=== PATIENT | male | born 1945 | race Caucasian/White ===

== ENCOUNTER → 2016-12-02 | Outpatient (CLI) | payer MEDICARE, OTHER ==
--- NOTE | 2016-12-02 11:50 | CT ---
EXAMINATION TYPE: CT chest wo con DATE OF EXAM: 12/02/2016 11:13 AM COMPARISON: 08/04/2016 HISTORY: f/u pneumonia, sob CT DLP: [address] of the chest was performed with lung and mediastinal window settings submitted. The la ck of contrast limits evaluation of the vascular, mediastinal and parenchymal structures including th e upper abdomen. LUNGS: Stable spiculated nodule within the right middle lobe measuring approximately 1.1 cm versus 1. 1 cm previously. No new nodules are identified. Small right paraspinal nodule is also unchanged and m easures 7.8 mm versus 8 mm previously. The lungs are otherwise clear. No evidence for focal consolida tion. No evidence for volume loss. MEDIASTINUM/JEANNE: Thoracic aorta is of normal caliber with limite d evaluation given lack of contrast. The heart is not enlarged. No evidence for mediastinal mass. No lymph nodes greater than 1cm. UPPER ABDOMEN: Stable small hiatal hernia and hepatic cyst. Left renal calculus measures 8 mm in grea test dimension. OTHER: No significant other abnormality. IMPRESSION: 1. Stable stellate density right middle lobe. Continued follow-up to assess for stability. 2. Small hiatal hernia with esophageal thickening. Consider direct visualization if felt clinically i ndicated.
== END | disposition home or self-care (01) ==
LOC: RADCTMAIN 10:53
PROVIDERS: ATTEND Internal Medicine
DX: J98.4 Other disorders of lung (principal); K44.9 Diaphragmatic hernia without obstruction or gangrene; R06.02 Shortness of breath; R05 Cough
CPT/HCPCS: 71250

== ENCOUNTER → 2017-06-03 | Outpatient (CLI) | payer MEDICARE, OTHER ==
--- NOTE | 2017-06-03 14:10 | CT ---
EXAMINATION TYPE: CT chest wo con DATE OF EXAM: 06/03/2017 COMPARISON: NONE HISTORY: SOB, Follow up CT DLP: 619 mGycm, Automated exposure control for dose reduction was used. CONTRAST: Performed injected with 0 mL of Omnipaque 300. TECHNIQUE: Axial images were obtained at 5 mm thick sections. Reconstructed images are reviewed on [employer] computer in the coronal plane. FINDINGS: Portion of the thyroid visualized is normal. Small area of groundglass opacities in the posterior right upper lobe measures 0.6 cm. There is a 1.4 cm groundglass opacity in the right middle lobe. This has enlarged from the comparison of November 2016 Follow-up this area is recommended, consider PET CT No enlarged mediastinal or hilar adenopathy is evident. The ascending aorta diameter at the level o f the main pulmonary artery is 3.6 cm. The main pulmonary artery diameter at the bifurcation is 2.[address] sections are obtained through the upper abdomen. There is a 0.7 cm ill-defined hypodensity anterior left lobe liver. Series 3 image 61 IMPRESSIONS: 1. Enlarging area of increased density with some underlying groundglass opacity right middle lobe. Co nsider PET CT for additional workup. 2. New groundglass opacity posterior right upper lobe. Follow-up is recommended. 3. Nonspecific ill-defined 0.7 cm hypodensity left lobe liver
== END | disposition home or self-care (01) ==
LOC: RADCTMAIN 09:38
PROVIDERS: ATTEND Internal Medicine Pulmonary Disease
DX: R91.8 Other nonspecific abnormal finding of lung field (principal); R06.02 Shortness of breath; R05 Cough
CPT/HCPCS: 71250

== ENCOUNTER → 2017-06-27 | Outpatient (CLI) | payer MEDICARE, OTHER ==
--- NOTE | 2017-06-28 14:07 | PE ---
Nuclear medicine PET/CT HISTORY: Solitary pulmonary nodule, R 91.1 Patient received 10.9 mCi F-18 FDG intravenously in delayed scanning was performed from the skull bas e to the mid thighs. Localization and attenuation correction CT scan was performed. Correlation CT chest 06/03/2017 Neck and chest: The parenchymal abnormalities within the right chest are again noted, there is no lyndon picious hypermetabolic uptake. No mediastinal, axillary, or hilar adenopathy. Opacification present o f the left maxillary sinus, there may be an underlying mucous retention cyst or mucocele with some hy permetabolic uptake, SUV 7.3, smaller mucus retention cyst suspected in the right maxillary sinus. Abdomen pelvis: No retroperitoneal adenopathy. Probable cyst present within the right lobe of the félix er is stable, indeterminate hypodensities within the left lobe aren't stable. No suspicious hypermeta bolic uptake. Prostate is enlarged, there are associated calcifications. Osseous structures: Degenerative disc changes are present within the thoracic and lumbar spine. IMPRESSION: Consider dedicated sinus CT, ENT consult for findings described above. Parenchymal abnorm alities within the right lung shows no associated hypermetabolic uptake and have been stable. Suspect these findings are benign. Consider follow-up to assess for stability.
== END | disposition home or self-care (01) ==
LOC: RADPETMAIN 14:49
PROVIDERS: ATTEND Internal Medicine
DX: R91.1 Solitary pulmonary nodule (principal)
CPT/HCPCS: 78815; A9552

== ENCOUNTER → 2018-01-20 | Outpatient (CLI) | payer MEDICARE, OTHER ==
[2018-01-20 14:53] LABS: Blood Urea Nitrogen 23 mg/dL (9-20)
--- NOTE | 2018-01-20 16:03 | CT ---
EXAMINATION TYPE: CT chest w con DATE OF EXAM: 01/20/2018 COMPARISON: PET/CT dated 06/27/[address] chest dated 06/03/2017, 12/02/2016, and 08/04/2016. HISTORY: Pulmonary Nodules CT DLP: 824 mGycm. Automated Exposure Control for Dose Reduction was Utilized. TECHNIQUE: CT scan of the thorax is performed following with IV Contrast, patient injected with 100 ml mL of Isovue 300. FINDINGS: LUNGS: Approximately 6 mm area of groundglass opacity within the right upper lobe seen on series 4 im age 29 is overall similar in appearance to the prior of 08/04/2016. Within the right middle lobe a sp iculated nodule retracting the fissure is seen measuring approximately 1.0 x 1.1 cm, also similar to the prior of 08/04/2016. Despite their stability the morphology of these areas raises suspicion for s low-growing neoplasm and continued surveillance is recommended. No new pulmonary nodules identified. Retrospectively stable probable additional medial pulmonary nodule within the right lower lobe measur es 8 mm on series 4 image 47. No pulmonary mass is seen. Retrospectively stable 2 mm left lower lobe peripheral pulmonary nodule on series 4 image 43 is unchanged from 2016 and should be considered kenya gn. No focal consolidation, pleural effusion or pneumothorax. There is no pleural effusion or pneumot horax seen. The tracheobronchial tree is patent. MEDIASTINUM: There are no greater than 1 cm hilar or mediastinal lymph nodes. No pericardial effusi on is seen. Ascending thoracic aorta and main pulmonary artery are within normal limits of size. The re is a normal variant origin of the left vertebral artery directly from the aortic arch. OTHER: Slightly asymmetric retroareolar, left greater than right, probable gynecomastia is seen. Slight distal esophageal mucosal thickening may be related to incomplete distention or esophagitis. S table probable hepatic cysts are noted with the largest compatible with a hepatic cyst in the right h epatic lobe measuring 3.8 cm. Moderate multilevel degenerative changes of the thoracic spine are seen . IMPRESSION: Stable size of the proximally 1.1 cm right middle lobe spiculated pulmonary nodule and ap proximately 6 mm groundglass opacity within the right upper lobe in comparison to the exam of 016, however these nodules have a suspicious morphology and could represent slow-growing neoplasm and therefore continued surveillance is recommended.
== END | disposition home or self-care (01) ==
LOC: RADCTMAIN 14:02
PROVIDERS: ATTEND Psychiatry & Neurology Neurology
DX: R91.8 Other nonspecific abnormal finding of lung field (principal); R06.02 Shortness of breath
CPT/HCPCS: 82565; 84520; 71260; 36415; Q9967

== ENCOUNTER → 2018-04-27 | Outpatient (CLI) | payer MEDICARE, OTHER ==
--- NOTE | 2018-04-27 14:45 | XR ---
EXAMINATION TYPE: XR chest 2V DATE OF EXAM: 04/27/2018 COMPARISON: 06/24/2016 TECHNIQUE: PA and lateral views submitted. HISTORY: Cough FINDINGS: The lungs are clear and there is no pneumothorax, pleural effusion, or focal pneumonia. Pulmonary n odules noted by previous CT scan are not as well seen on x-ray. Arthropathy of the shoulder. Hypertro phic and degenerative change of the spine. Hyperinflation suggests COPD. IMPRESSION: 1. No acute process. Pulmonary nodules reported by previous CT scan are not as well seen by x-ray. Th daniela could be followed with repeat CT scan as clinically warranted.
== END | disposition home or self-care (01) ==
LOC: RADXRMAIN 14:15
PROVIDERS: ATTEND Internal Medicine
DX: R05 Cough (principal)
CPT/HCPCS: 71046

== ENCOUNTER → 2018-06-11 | Outpatient (CLI) | payer MEDICARE, OTHER ==
--- NOTE | 2018-06-11 17:17 | CT ---
EXAMINATION TYPE: CT sinus wo con DATE OF EXAM: 06/11/2018 COMPARISON: None HISTORY: Nasal drip x [address] DLP: 624.2 mGycm CONTRAST: 0 mL of Isovue 300 The paranasal sinuses are examined in the axial plane at 2 mm thick sections. Reconstructed images i n the coronal plane were obtained. There is dental amalgam scatter artifact There is complete opacification of the left maxillary sinus. Mucosal thickening is through the right maxillary sinus. Diffuse mucosal thickening is scattered through the ethmoid air cells. Mild mucosa l thickening is within the anterior left sphenoid sinuses. The frontal sinuses are clear. The septum is evaluated. There is septal deviation to the right. Right septal spur is noted. The ostiomeatal units are obstructed. IMPRESSIONS: 1. Opacification of the left maxillary sinus. Mucosal thickening is within the right maxillary sinus , bilateral ethmoid air cells, and anterior left sphenoid sinus. Correlate for pansinusitis.
== END | disposition home or self-care (01) ==
LOC: RADCTMAIN 14:05
PROVIDERS: ATTEND Otolaryngology
DX: J34.89 Other specified disorders of nose and nasal sinuses (principal)
CPT/HCPCS: 70486

== ENCOUNTER → 2018-06-24 | Outpatient (CLI) | payer MEDICARE, OTHER ==
--- NOTE | 2018-06-24 15:41 | CT ---
EXAMINATION TYPE: CT chest wo con DATE OF EXAM: 06/24/2018 COMPARISON: 01/20/2018 HISTORY: Prior lung nodules, shortness of breath and cough CT DLP: 425.9 mGycm, Automated exposure control for dose reduction was used. CONTRAST: Performed injected with 0 mL of Isovue 300. TECHNIQUE: Axial images were obtained at 5 mm thick sections. Reconstructed images are reviewed on [employer] computer in the coronal plane. FINDINGS: Portion of the thyroid visualized is normal. There appears to be a spiculated nodule in the right middle lobe measuring 1.2 cm. This was present p reviously and appears similar. There is a pleural-based nodularity adjacent to the right side of the spine measuring 1.0 cm. This is present previously. There is a 0.4 cm nodule in the posterior left midlung. Series 4 image 33. This was present previously but may be slightly larger than comparison. This could be due to volume averag ing. There is a 1.0 cm aortopulmonic window lymph node. Series 3 image 23. The ascending aorta diameter a t the level of the main pulmonary artery is 3.7 cm. The main pulmonary artery diameter at the bifurc ation is 2.5 cm. Some mild coronary artery calcification is present. Limited CT sections are obtained through the upper abdomen. There is a 3.7 cm cyst within the right l obe liver measuring 1 Hounsfield units. IMPRESSIONS: 1. Stable appearance of the larger nodules within the right lung. A small left lung nodule may have i ncreased in size to 0.4 cm on the current examination.
== END | disposition home or self-care (01) ==
LOC: RADCTMAIN 11:45
PROVIDERS: ATTEND Internal Medicine Pulmonary Disease
DX: R91.8 Other nonspecific abnormal finding of lung field (principal)
CPT/HCPCS: 71250

== ENCOUNTER → 2018-08-07 | Outpatient (CLI) | payer MEDICARE, OTHER ==
--- NOTE | 2018-08-08 07:35 | PE ---
EXAMINATION TYPE: PET CT fusion skull to thigh DATE OF EXAM: 08/07/2018 COMPARISON: Chest CT June 24, 2018 and older CTs. Prior PET/CT June 27, 2017 HISTORY: Solitary pulmonary nodule, abnormal CT. TECHNIQUE: Following the intravenous administration of 13.379 mCi of F-18 FDG, whole body images are performed from the skull base to the midthigh. Images are reviewed on the computer in the coronal, axial, and sagittal planes. Reconstructed rotating images are created on independent workstation and reviewed on the computer. A localization and attenuation correction CT is performed in conjunction with the PET scan. SCAN: Subsequent Scan FINDINGS: SKULL BASE AND NECK: No suspicious hypermetabolic uptake is seen. CHEST, MEDIASTINUM, AND HILAR REGION: There is persistent scarlike opacity right middle lobe measurin g roughly 1.4 x 0.8 cm axial image 120 without hypermetabolic uptake. There is stable 1.[address] eural-based a metabolic nodule right lower lobe axial image 128., Both findings are not significantly changed from July 2016 CT and can be presumed benign or postinflammatory. No areas of suspicious hypermetabolic uptake are present. ABDOMEN AND PELVIS: No suspicious hypermetabolic uptake is seen. Normal excretion is noted. OSSEOUS STRUCTURES: No suspicious hypermetabolic uptake is seen. OTHER CT: There is near complete opacification left maxillary sinus improved from prior PET/CT. Small degree of bilateral gynecomastia is redemonstrated. There is simple appearing thin-walled 3.5 cm cyst centrally in the liver axial image 148. There is 10 mm elongated calculus left kidney axial image 168 redemonstrated. Prostate gland is markedly enlarged in size bulging on bladder base consistent with underlying BPH. C entral calcifications are present. There are left-sided pelvic phleboliths noted. There is multilevel spurring in the thoracolumbar spine. Multilevel disc space narrowing in the lumba r spine is present. Facet arthropathy lower lumbar levels is noted. IMPRESSION: No suspicious hypermetabolic uptake is seen to suggest malignancy. Areas of concern are n ot significantly changed from July 2016 CT.
== END | disposition home or self-care (01) ==
LOC: RADPETMAIN 11:45
PROVIDERS: ATTEND Internal Medicine
DX: R91.1 Solitary pulmonary nodule (principal)
CPT/HCPCS: 78815; A9552

== ENCOUNTER → 2023-07-07 | Outpatient (CLI) | payer MEDICARE, OTHER ==
[~2023-07-07] MED LIST: REGADENOSON 0.4 MG/5 ML SYRINGE IV PRN
--- NOTE | 2023-07-07 11:03 | CA ---
Lexiscan Nuclear Stress Test Report Name: Leola Bauman Exam Date: 07/07/2023 09:41 Exam Location: [place] Stress Ht (in): 70 Wt (lb): 200 BSA: 2.09 Ordering Phys: Aisha Lucero MD Referring Phys: AISHA LUCERO,, Technologist: MEERA, Age: 77 Gender: M : 1945 Procedure CPT: Indications: R06.02 SOB ICD-10 Codes: Patient History: Shortness of breath Medications: Meds past 24 hrs: Pretest Chest Pain: STRESS TEST Lexiscan Protocol Exercise Duration (min:sec): 02:[address] Depressions (mm): Angina Score: Armendariz Score: Resting HR (bpm): 52 Peak HR (bpm): 71 Resting BP (mmHg): 123 / 65 Peak BP (mmHg): 128 / 58 MPHR: 142 Target HR: 121 % MPHR: 50 METS: 1.0 Total Dose: Peak Dose: Atropine: Double Product: 9088 BP Response: Stress Termination: Infusion complete Stress Symptoms: No chest pain or symptoms Stress Summary: ECG ANALYSIS Resting ECG: Sinus bradycardia with left bundle branch block Stress ECG: Inconclusive CONCLUSIONS Inconclusive EKG part of the stress test due to baseline EKG abnormalities Cardiolite portion of the stress test will be reported separately Dr. Frank Solo MD (Electronically Signed) Final Date: 07 July 2023 11:02
--- NOTE | 2023-07-08 10:13 | NM ---
EXAMINATION TYPE: NM stress lexiscan cardiolite DATE OF EXAM: 07/07/2023 COMPARISON: NONE CLINICAL INDICATION: Male, 77 years old with history of R06.02 SOB; TECHNIQUE: After the intravenous administration of 9.73 mCi Tc 99m Sestamibi - Cardiolite resting SP ECT images acquired 45 minutes post injection. The patient received 0.4mg Lexiscan, 25.4 mCi Tc 99m Sestamibi - Stress images obtained [address] injection FINDINGS: Review of stress and rest SPECT images demonstrates large fixed perfusion defect along the inferior w all. No discrete reversibility is seen. Gated analysis shows normal wall motion with an estimated l eft ventricular ejection fraction of 48 %. TID is upper limits of normal at 1.11. IMPRESSION: 1. Large fixed perfusion defect along the inferior wall could reflect prior infarct or prominent diap hragmatic attenuation artifact. Further clinical correlation recommended. 2. No discrete reversibility is seen. 3. Estimated LVEF mildly diminished at 48%.
== END | disposition home or self-care (01) ==
LOC: RADNMMAIN 08:16
PROVIDERS: ATTEND Family Medicine
DX: R06.02 Shortness of breath (principal); R94.31 Abnormal electrocardiogram [ECG] [EKG]
CPT/HCPCS: 93017; 78452; A9500; J2785